=== PATIENT | male | born 1965 | race African-American/Black ===

== ENCOUNTER 2019-11-08 09:30 | Inpatient (IN) | payer MEDICAID ==
[~2019-11-08] VITALS: Ht 167.6 cm; Wt 80.7 kg
[2019-11-08] MEDS ORDERED: BUSP10TA23 PO (12:03)
[2019-11-08] MEDS ORDERED: FLUO-191 PO (12:03)
[2019-11-08] MEDS ORDERED: BUPR75 PO (12:03)
[2019-11-08] MEDS ORDERED: LURA40 PO (12:03)
[2019-11-08] MEDS ORDERED: TRAZ150 PO (12:03)
[2019-11-08] MEDS ORDERED: METF-960 PO (12:07)
[2019-11-08] MEDS ORDERED: AMLO2.5T4 PO (12:07)
[2019-11-08] MEDS ORDERED: ATOR10TA84 PO (12:07)
[2019-11-08] MEDS ORDERED: LISI-662 PO (12:18)
[2019-11-08] MEDS ORDERED: BUPR100 PO (12:20)
[2019-11-08] MEDS ORDERED: HALOPERIDOL 5 MG TABLET PO PRN (13:00)
[2019-11-08] MEDS ORDERED: ZOLPIDEM TARTRATE 10 MG TABLET PO PRN (13:00)
[2019-11-08 13:21] VITALS: BP 155/88
[2019-11-08 14:11] LABS: GLUCOMETER DEV NAME(LOC) BV2S.; GLUCOSE,POINT OF CARE 140 MG/DL (70-110)
[2019-11-08] MEDS: BuPROPion HCL 100 MG TABLET PO SCH (17:54)
[2019-11-08] MEDS: BusPIRone HCL 10 MG TABLET PO SCH (17:54)
[2019-11-08] MEDS: MetFORMIN HCL 500 MG TABLET PO SCH (17:54)
[2019-11-08 18:10] VITALS: BP 133/80
[2019-11-08] MEDS ORDERED: TraZODone HCL 150 MG TABLET PO SCH (21:00)
[2019-11-09 03:53] VITALS: BP 139/80
[2019-11-09 06:37] LABS: BASOPHILS % (AUTO) 1.4 % (0.0-2.0); HEMATOCRIT 38.6 % (41-53); HEMOGLOBIN 12.8 g/dL (13.5-17.5); LYMPHOCYTES # (AUTO) 1.8 K/uL (1.0-4.8); LYMPHOCYTES % (AUTO) 37.4 % (22.0-44.0); MEAN CORPUSCULAR HEMOGLOBIN 29.5 pg (26.0-34.0); MEAN CORPUSCULAR HGB CONC 33.3 G/dL (31.0-37.0); MEAN CORPUSCULAR VOLUME 89 fL (80-100); MONOCYTES # (AUTO) 0.4 K/uL (0.1-1.0); MONOCYTES % (AUTO) 9.3 % (2.0-9.0); NEUTROPHILS # (AUTO) 2.4 K/uL (1.8-7.7); NEUTROPHILS % (AUTO) 49.9 % (40.0-70.0); PLATELET COUNT (AUTO) 321 K/uL (150-450); RED BLOOD CELL COUNT(AUTO) 4.36 MIL/uL (4.50-5.90); RED CELL DISTRIBUTION WIDTH 13.9 % (11.5-14.5)
[2019-11-09 07:07] LABS: ALANINE AMINOTRANSFERASE 22 U/L (12-78); ALBUMIN 3.1 g/dL (3.4-5.0); ALKALINE PHOSPHATASE 61 U/L (46-116); ANION GAP 5 mmol/L (8-16); ASPARTATE AMINOTRANSFERASE 8 U/L (15-37); BILIRUBIN,TOTAL 0.2 mg/dL (0.1-1.0); CALCIUM, TOTAL 9.1 mg/dL (8.8-10.5); CARBON DIOXIDE 32 mmol/L (22-29); CHLORIDE 106 mmol/L (98-107); CHOL/HDL RATIO 2.3 (4.2-7.3); CHOLESTEROL 135 mg/dL (131-200); CREATININE 1.06 mg/dL (0.60-1.30); FREE T4 (FREE THYROXINE) 0.97 ng/dL (0.76-1.46); GLOMERULAR FILTR. RATE CALC > 60 mL/min (>60); GLUCOSE,RANDOM 103 mg/dL (70-110); HDL CHOLESTEROL 58 mg/dL (40-60); LDL CHOL (CALC.) 62 mg/dL (0-130); POTASSIUM 4.3 mmol/L (3.5-5.1); SODIUM SERUM 143 mmol/L (136-145); THYROID STIMULATING HORMONE 0.51 uIU/mL (0.36-3.74); TRIGLYCERIDES 76 mg/dL (15-150); UREA NITROGEN, BLOOD 10 mg/dL (7-18)
[2019-11-09] MEDS: MetFORMIN HCL 500 MG TABLET PO SCH ×2 (07:12→17:00)
[2019-11-09] MEDS: ATORVASTATIN CALCIUM 10 MG TABLET PO SCH (08:24)
[2019-11-09] MEDS: BuPROPion HCL 100 MG TABLET PO SCH ×2 (08:24→17:00)
[2019-11-09] MEDS: LISINOPRIL 20 MG TABLET PO SCH (08:24)
[2019-11-09] MEDS: FLUoxetine HCL 20 MG CAPSULE PO SCH (08:24)
[2019-11-09] MEDS: BusPIRone HCL 10 MG TABLET PO SCH ×3 (08:24→17:00)
[2019-11-09] MEDS: AmLODIPine BESYLATE 2.5 MG TABLET PO SCH (08:24)
[2019-11-09 08:47] VITALS: BP 118/70
[2019-11-09 16:07] VITALS: BP 120/75
[2019-11-09] MEDS: TraZODone HCL 100 MG TABLET PO SCH (20:08)
[2019-11-10 06:21] VITALS: BP 109/72
[2019-11-10] MEDS: MetFORMIN HCL 500 MG TABLET PO SCH ×2 (06:50→17:55)
[2019-11-10 08:46] VITALS: BP 120/77
[2019-11-10] MEDS: LISINOPRIL 20 MG TABLET PO SCH (08:50)
[2019-11-10] MEDS: FLUoxetine HCL 20 MG CAPSULE PO SCH (08:50)
[2019-11-10] MEDS: AmLODIPine BESYLATE 2.5 MG TABLET PO SCH (08:51)
[2019-11-10] MEDS: ATORVASTATIN CALCIUM 10 MG TABLET PO SCH (08:51)
[2019-11-10] MEDS: BusPIRone HCL 10 MG TABLET PO SCH ×3 (08:52→17:55)
[2019-11-10] MEDS: BuPROPion HCL 100 MG TABLET PO SCH (08:57)
[2019-11-10] MEDS: LORazepam 2 MG TABLET PO PRN (10:19)
[2019-11-10 16:51] VITALS: BP 130/76
[2019-11-10] MEDS: TraZODone HCL 100 MG TABLET PO SCH (21:51)
[2019-11-11 06:05] VITALS: BP 128/80
[2019-11-11] MEDS: MetFORMIN HCL 500 MG TABLET PO SCH ×2 (06:43→17:00)
[2019-11-11 08:11] VITALS: BP 141/84
[2019-11-11] MEDS: LISINOPRIL 20 MG TABLET PO SCH (08:46)
[2019-11-11] MEDS: ATORVASTATIN CALCIUM 10 MG TABLET PO SCH (08:46)
[2019-11-11] MEDS: BuPROPion HCL XL 150 MG ER TABLET PO SCH (08:47)
[2019-11-11] MEDS: BusPIRone HCL 10 MG TABLET PO SCH ×3 (08:47→17:00)
[2019-11-11] MEDS: FLUoxetine HCL 20 MG CAPSULE PO SCH (08:47)
[2019-11-11] MEDS: AmLODIPine BESYLATE 2.5 MG TABLET PO SCH (08:47)
[2019-11-11 16:09] VITALS: BP 132/76
[2019-11-11] MEDS: LORazepam 2 MG TABLET PO PRN (19:28)
[2019-11-11] MEDS: TraZODone HCL 100 MG TABLET PO SCH (20:41)
[2019-11-12 00:55] VITALS: BP 118/87
[2019-11-12] MEDS: MetFORMIN HCL 500 MG TABLET PO SCH ×2 (06:31→17:09)
[2019-11-12] MEDS: LISINOPRIL 20 MG TABLET PO SCH (08:14)
[2019-11-12] MEDS: FLUoxetine HCL 20 MG CAPSULE PO SCH (08:14)
[2019-11-12] MEDS: BusPIRone HCL 10 MG TABLET PO SCH ×3 (08:14→17:09)
[2019-11-12] MEDS: AmLODIPine BESYLATE 2.5 MG TABLET PO SCH (08:14)
[2019-11-12] MEDS: BuPROPion HCL XL 150 MG ER TABLET PO SCH (08:14)
[2019-11-12] MEDS: ATORVASTATIN CALCIUM 10 MG TABLET PO SCH (08:15)
[2019-11-12 08:39] VITALS: BP 144/86
[2019-11-12] MEDS ORDERED: ACETAMINOPHEN 325 MG TABLET PO PRN (09:45)
[2019-11-12] MEDS ORDERED: ONDANSETRON HCL 4 MG TABLET PO PRN (09:45)
[2019-11-12] MEDS ORDERED: DOCUSATE SODIUM 100 MG CAPSULE PO PRN (09:45)
[2019-11-12] MEDS ORDERED: MAGNESIUM HYDROXIDE SUSPENSION 30 ML UDCUP PO PRN (09:45)
[2019-11-12] MEDS ORDERED: CloNIDine HCL 0.1 MG TABLET PO PRN (09:45)
[2019-11-12] MEDS ORDERED: GuaiFENesin/D-METHORPHAN [SUGAR-FREE] 200-20MG/10 ML SYRUP UDCUP PO PRN (09:45)
[2019-11-12] MEDS ORDERED: NICOTINE 14 MG/24 HOUR PATCH TD PRN (09:45)
[2019-11-12] MEDS ORDERED: MAG HYDROX/AL HYDROX/SIMETH ES 30 ML SUSPENSION UDCUP PO PRN (09:45)
[2019-11-12] MEDS ORDERED: IBUPROFEN 400 MG TABLET PO PRN (09:45)
[2019-11-12] MEDS ORDERED: LOPERAMIDE HCL 2 MG CAPSULE PO PRN (09:45)
[2019-11-12] MEDS ORDERED: ALBUTEROL SULFATE HFA 90 MCG/PUFF 8 GM INHALER IH PRN (09:45)
[2019-11-12] MEDS ORDERED: PETROLATUM,WHITE 28 GM JELLY TP PRN (09:45)
[2019-11-12 16:00] VITALS: BP 139/72
[2019-11-12] MEDS: TraZODone HCL 100 MG TABLET PO SCH (20:08)
[2019-11-13 00:48] VITALS: BP 117/64
[2019-11-13] MEDS: MetFORMIN HCL 500 MG TABLET PO SCH ×2 (06:32→17:04)
[2019-11-13] MEDS: AmLODIPine BESYLATE 2.5 MG TABLET PO SCH (08:30)
[2019-11-13] MEDS: LISINOPRIL 20 MG TABLET PO SCH (08:30)
[2019-11-13] MEDS: BuPROPion HCL XL 150 MG ER TABLET PO SCH (08:30)
[2019-11-13] MEDS: ATORVASTATIN CALCIUM 10 MG TABLET PO SCH (08:31)
[2019-11-13] MEDS: FLUoxetine HCL 20 MG CAPSULE PO SCH (08:31)
[2019-11-13] MEDS: BusPIRone HCL 10 MG TABLET PO SCH ×3 (08:31→17:04)
[2019-11-13 08:44] VITALS: BP 103/77
[2019-11-13 18:08] VITALS: BP 130/81
[2019-11-13] MEDS: TraZODone HCL 100 MG TABLET PO SCH (20:54)
[2019-11-14 05:56] VITALS: BP 127/82
[2019-11-14] MEDS: MetFORMIN HCL 500 MG TABLET PO SCH ×2 (06:43→17:14)
[2019-11-14 08:27] VITALS: BP 112/63
[2019-11-14] MEDS: AmLODIPine BESYLATE 2.5 MG TABLET PO SCH (08:42)
[2019-11-14] MEDS: BusPIRone HCL 10 MG TABLET PO SCH ×3 (08:42→17:14)
[2019-11-14] MEDS: LISINOPRIL 20 MG TABLET PO SCH (08:42)
[2019-11-14] MEDS: FLUoxetine HCL 20 MG CAPSULE PO SCH (08:42)
[2019-11-14] MEDS: BuPROPion HCL XL 150 MG ER TABLET PO SCH (08:42)
[2019-11-14] MEDS: ATORVASTATIN CALCIUM 10 MG TABLET PO SCH (08:42)
[2019-11-14 16:17] VITALS: BP 117/74
[2019-11-14] MEDS: TraZODone HCL 100 MG TABLET PO SCH (20:23)
[2019-11-15 06:18] VITALS: BP 123/79
[2019-11-15] MEDS: MetFORMIN HCL 500 MG TABLET PO SCH ×2 (06:26→16:58)
[2019-11-15 06:34] LABS: GLUCOMETER DEV NAME(LOC) BV2S.; GLUCOSE,POINT OF CARE 95 MG/DL (70-110)
[2019-11-15] MEDS: ATORVASTATIN CALCIUM 10 MG TABLET PO SCH (08:28)
[2019-11-15 08:29] VITALS: BP 140/80
[2019-11-15] MEDS: FLUoxetine HCL 20 MG CAPSULE PO SCH (08:29)
[2019-11-15] MEDS: BuPROPion HCL XL 150 MG ER TABLET PO SCH (08:29)
[2019-11-15] MEDS: AmLODIPine BESYLATE 2.5 MG TABLET PO SCH (08:29)
[2019-11-15] MEDS: BusPIRone HCL 10 MG TABLET PO SCH ×3 (08:29→16:58)
[2019-11-15] MEDS: LISINOPRIL 20 MG TABLET PO SCH (08:29)
[2019-11-15 16:29] VITALS: BP 135/74
[2019-11-15] MEDS: TraZODone HCL 100 MG TABLET PO SCH (20:28)
[2019-11-16 05:41] VITALS: BP 126/72
[2019-11-16 06:26] LABS: GLUCOMETER DEV NAME(LOC) BV2S.; GLUCOSE,POINT OF CARE 82 MG/DL (70-110)
[2019-11-16] MEDS: MetFORMIN HCL 500 MG TABLET PO SCH ×2 (07:13→16:59)
[2019-11-16] MEDS: AmLODIPine BESYLATE 2.5 MG TABLET PO SCH (09:09)
[2019-11-16] MEDS: LISINOPRIL 20 MG TABLET PO SCH (09:09)
[2019-11-16] MEDS: ATORVASTATIN CALCIUM 10 MG TABLET PO SCH (09:09)
[2019-11-16] MEDS: BuPROPion HCL XL 150 MG ER TABLET PO SCH (09:09)
[2019-11-16] MEDS: FLUoxetine HCL 20 MG CAPSULE PO SCH (09:09)
[2019-11-16] MEDS: BusPIRone HCL 10 MG TABLET PO SCH ×3 (09:09→16:59)
[2019-11-16 10:32] VITALS: BP 127/68
[2019-11-16 16:09] VITALS: BP 133/81
[2019-11-16 17:03] LABS: GLUCOMETER DEV NAME(LOC) BV2S.; GLUCOSE,POINT OF CARE 139 MG/DL (70-110)
[2019-11-16] MEDS: TraZODone HCL 100 MG TABLET PO SCH (20:28)
[2019-11-17 06:26] LABS: GLUCOMETER DEV NAME(LOC) BV2S.; GLUCOSE,POINT OF CARE 88 MG/DL (70-110)
[2019-11-17] MEDS: MetFORMIN HCL 500 MG TABLET PO SCH (06:28)
[2019-11-17 08:00] VITALS: BP 135/81
[2019-11-17] MEDS: AmLODIPine BESYLATE 2.5 MG TABLET PO SCH (08:28)
[2019-11-17] MEDS: ATORVASTATIN CALCIUM 10 MG TABLET PO SCH (08:28)
[2019-11-17] MEDS: FLUoxetine HCL 20 MG CAPSULE PO SCH (08:28)
[2019-11-17] MEDS: BusPIRone HCL 10 MG TABLET PO SCH ×3 (08:28→16:41)
[2019-11-17] MEDS: LISINOPRIL 20 MG TABLET PO SCH (08:28)
[2019-11-17] MEDS ORDERED: BuPROPion HCL XL 150 MG ER TABLET PO SCH (09:00)
[2019-11-17] MEDS ORDERED: BuPROPion HCL XL 150 MG ER TABLET PO ONE (11:00)
[2019-11-17 16:07] VITALS: BP 124/76
[2019-11-17] MEDS: TraZODone HCL 100 MG TABLET PO SCH (20:44)
[2019-11-18 00:43] VITALS: BP 124/70
[2019-11-18 06:22] LABS: GLUCOMETER DEV NAME(LOC) BV2S.; GLUCOSE,POINT OF CARE 96 MG/DL (70-110)
[2019-11-18] MEDS: MetFORMIN HCL 500 MG TABLET PO SCH (06:38)
[2019-11-18] MEDS: BusPIRone HCL 10 MG TABLET PO SCH ×3 (08:18→16:19)
[2019-11-18] MEDS: AmLODIPine BESYLATE 2.5 MG TABLET PO SCH (08:18)
[2019-11-18] MEDS: FLUoxetine HCL 20 MG CAPSULE PO SCH (08:18)
[2019-11-18] MEDS: BuPROPion HCL XL 150 MG ER TABLET PO SCH (08:19)
[2019-11-18] MEDS: ATORVASTATIN CALCIUM 10 MG TABLET PO SCH (08:19)
[2019-11-18] MEDS: LISINOPRIL 20 MG TABLET PO SCH (08:19)
[2019-11-18 08:22] VITALS: BP 121/80
[2019-11-18 16:43] VITALS: BP 140/91
[2019-11-18 20:28] LABS: GLUCOMETER DEV NAME(LOC) BV2S.; GLUCOSE,POINT OF CARE 150 MG/DL (70-110)
[2019-11-18] MEDS: TraZODone HCL 100 MG TABLET PO SCH (21:00)
[2019-11-19 00:21] VITALS: BP 112/69
[2019-11-19 06:21] LABS: GLUCOMETER DEV NAME(LOC) BV2S.; GLUCOSE,POINT OF CARE 90 MG/DL (70-110)
[2019-11-19] MEDS: MetFORMIN HCL 500 MG TABLET PO SCH (06:44)
[2019-11-19] MEDS: ATORVASTATIN CALCIUM 10 MG TABLET PO SCH (08:51)
[2019-11-19] MEDS: AmLODIPine BESYLATE 2.5 MG TABLET PO SCH (08:52)
[2019-11-19] MEDS: BuPROPion HCL XL 150 MG ER TABLET PO SCH (08:52)
[2019-11-19] MEDS: BusPIRone HCL 10 MG TABLET PO SCH ×3 (08:52→16:19)
[2019-11-19] MEDS: FLUoxetine HCL 20 MG CAPSULE PO SCH (08:52)
[2019-11-19] MEDS: LISINOPRIL 20 MG TABLET PO SCH (08:52)
[2019-11-19 09:24] VITALS: BP 127/83
[2019-11-19 16:18] VITALS: BP 138/90
[2019-11-19] MEDS: TraZODone HCL 100 MG TABLET PO SCH (20:13)
[2019-11-19 20:30] LABS: GLUCOMETER DEV NAME(LOC) BV2S.; GLUCOSE,POINT OF CARE 108 MG/DL (70-110)
[2019-11-20 00:20] VITALS: BP 70/78
[2019-11-20 06:30] LABS: GLUCOMETER DEV NAME(LOC) BV2S.; GLUCOSE,POINT OF CARE 99 MG/DL (70-110)
[2019-11-20] MEDS: MetFORMIN HCL 500 MG TABLET PO SCH (06:46)
[2019-11-20 08:30] VITALS: BP 130/74
[2019-11-20] MEDS: AmLODIPine BESYLATE 2.5 MG TABLET PO SCH (08:39)
[2019-11-20] MEDS: LISINOPRIL 20 MG TABLET PO SCH (08:40)
[2019-11-20] MEDS: BuPROPion HCL XL 150 MG ER TABLET PO SCH (08:40)
[2019-11-20] MEDS: BusPIRone HCL 10 MG TABLET PO SCH ×3 (08:40→16:26)
[2019-11-20] MEDS: ATORVASTATIN CALCIUM 10 MG TABLET PO SCH (08:40)
[2019-11-20] MEDS: FLUoxetine HCL 20 MG CAPSULE PO SCH (08:40)
[2019-11-20] MEDS: LORazepam 2 MG TABLET PO PRN (13:40)
[2019-11-20 16:15] VITALS: BP 136/84
[2019-11-20 17:11] LABS: GLUCOMETER DEV NAME(LOC) BV2S.; GLUCOSE,POINT OF CARE 160 MG/DL (70-110)
[2019-11-20] MEDS: TraZODone HCL 100 MG TABLET PO SCH (20:36)
[2019-11-21 05:21] VITALS: BP 116/71
[2019-11-21] MEDS: MetFORMIN HCL 500 MG TABLET PO SCH (07:16)
[2019-11-21 08:36] VITALS: BP 132/73
[2019-11-21] MEDS: LISINOPRIL 20 MG TABLET PO SCH (08:47)
[2019-11-21] MEDS: BusPIRone HCL 10 MG TABLET PO SCH ×3 (08:47→16:55)
[2019-11-21] MEDS: BuPROPion HCL XL 150 MG ER TABLET PO SCH (08:47)
[2019-11-21] MEDS: AmLODIPine BESYLATE 2.5 MG TABLET PO SCH (08:47)
[2019-11-21] MEDS: ATORVASTATIN CALCIUM 10 MG TABLET PO SCH (08:48)
[2019-11-21] MEDS: FLUoxetine HCL 20 MG CAPSULE PO SCH (08:48)
[2019-11-21 16:26] VITALS: BP 141/82
[2019-11-21 16:32] LABS: GLUCOMETER DEV NAME(LOC) BV2S.; GLUCOSE,POINT OF CARE 106 MG/DL (70-110)
[2019-11-21] MEDS: TraZODone HCL 100 MG TABLET PO SCH (20:56)
[2019-11-22 00:45] VITALS: BP 122/66
[2019-11-22] MEDS: MetFORMIN HCL 500 MG TABLET PO SCH (07:29)
[2019-11-22 07:42] LABS: GLUCOMETER DEV NAME(LOC) BV2S.; GLUCOSE,POINT OF CARE 125 MG/DL (70-110)
[2019-11-22 08:48] VITALS: BP 130/75
[2019-11-22] MEDS: ATORVASTATIN CALCIUM 10 MG TABLET PO SCH (09:39)
[2019-11-22] MEDS: BuPROPion HCL XL 150 MG ER TABLET PO SCH (09:39)
[2019-11-22] MEDS: LISINOPRIL 20 MG TABLET PO SCH (09:39)
[2019-11-22] MEDS: AmLODIPine BESYLATE 2.5 MG TABLET PO SCH (09:39)
[2019-11-22] MEDS: BusPIRone HCL 10 MG TABLET PO SCH ×3 (09:39→16:32)
[2019-11-22] MEDS: FLUoxetine HCL 20 MG CAPSULE PO SCH (09:39)
[2019-11-22 16:47] VITALS: BP 132/85
[2019-11-22 17:03] LABS: GLUCOMETER DEV NAME(LOC) BV2S.; GLUCOSE,POINT OF CARE 104 MG/DL (70-110)
[2019-11-22] MEDS: TraZODone HCL 100 MG TABLET PO SCH (20:13)
[2019-11-23 06:31] VITALS: BP 122/89
[2019-11-23 06:50] LABS: GLUCOMETER DEV NAME(LOC) BV2S.; GLUCOSE,POINT OF CARE 92 MG/DL (70-110)
[2019-11-23] MEDS: MetFORMIN HCL 500 MG TABLET PO SCH (07:04)
[2019-11-23] MEDS: AmLODIPine BESYLATE 2.5 MG TABLET PO SCH (08:41)
[2019-11-23] MEDS: LISINOPRIL 20 MG TABLET PO SCH (08:41)
[2019-11-23] MEDS: ATORVASTATIN CALCIUM 10 MG TABLET PO SCH (08:41)
[2019-11-23] MEDS: BusPIRone HCL 10 MG TABLET PO SCH ×3 (08:41→16:39)
[2019-11-23] MEDS: BuPROPion HCL XL 150 MG ER TABLET PO SCH (08:41)
[2019-11-23] MEDS: FLUoxetine HCL 20 MG CAPSULE PO SCH (08:42)
[2019-11-23 10:12] VITALS: BP 136/87
[2019-11-23 15:30] VITALS: BP 136/88
[2019-11-23 16:18] VITALS: BP 136/88
[2019-11-23 16:50] LABS: GLUCOMETER DEV NAME(LOC) BV2S.; GLUCOSE,POINT OF CARE 81 MG/DL (70-110)
[2019-11-23] MEDS: LORazepam 2 MG TABLET PO PRN (18:02)
[2019-11-23] MEDS: TraZODone HCL 100 MG TABLET PO SCH (20:26)
[2019-11-24 06:10] VITALS: BP 137/86
[2019-11-24 06:40] LABS: GLUCOMETER DEV NAME(LOC) BV2S.; GLUCOSE,POINT OF CARE 84 MG/DL (70-110)
[2019-11-24] MEDS: MetFORMIN HCL 500 MG TABLET PO SCH (07:00)
[2019-11-24 08:35] VITALS: BP 168/87
[2019-11-24] MEDS: AmLODIPine BESYLATE 2.5 MG TABLET PO SCH (08:52)
[2019-11-24] MEDS: LISINOPRIL 20 MG TABLET PO SCH (08:53)
[2019-11-24] MEDS: BuPROPion HCL XL 150 MG ER TABLET PO SCH (08:53)
[2019-11-24] MEDS: FLUoxetine HCL 20 MG CAPSULE PO SCH (08:53)
[2019-11-24] MEDS: BusPIRone HCL 10 MG TABLET PO SCH ×3 (08:54→18:04)
[2019-11-24] MEDS: ATORVASTATIN CALCIUM 10 MG TABLET PO SCH (08:54)
[2019-11-24 16:20] VITALS: BP 137/83
[2019-11-24 16:45] LABS: GLUCOMETER DEV NAME(LOC) BV2S.; GLUCOSE,POINT OF CARE 109 MG/DL (70-110)
[2019-11-24] MEDS: TraZODone HCL 100 MG TABLET PO SCH (20:40)
[2019-11-25 02:08] VITALS: BP 137/80
[2019-11-25 06:21] LABS: GLUCOMETER DEV NAME(LOC) BV2S.; GLUCOSE,POINT OF CARE 81 MG/DL (70-110)
[2019-11-25] MEDS: MetFORMIN HCL 500 MG TABLET PO SCH (06:56)
[2019-11-25 08:06] VITALS: BP 133/84
[2019-11-25] MEDS: AmLODIPine BESYLATE 2.5 MG TABLET PO SCH (08:50)
[2019-11-25] MEDS: BusPIRone HCL 10 MG TABLET PO SCH ×3 (08:50→16:42)
[2019-11-25] MEDS: ATORVASTATIN CALCIUM 10 MG TABLET PO SCH (08:51)
[2019-11-25] MEDS: BuPROPion HCL XL 150 MG ER TABLET PO SCH (08:51)
[2019-11-25] MEDS: LISINOPRIL 20 MG TABLET PO SCH (08:51)
[2019-11-25] MEDS: FLUoxetine HCL 20 MG CAPSULE PO SCH (08:51)
[2019-11-25 16:18] VITALS: BP 136/93
[2019-11-25 17:12] LABS: GLUCOMETER DEV NAME(LOC) BV2S.; GLUCOSE,POINT OF CARE 93 MG/DL (70-110)
[2019-11-25] MEDS: TraZODone HCL 100 MG TABLET PO SCH (20:10)
[2019-11-25] MEDS ORDERED: ZOLPIDEM TARTRATE 10 MG TABLET PO PRN (22:00)
[2019-11-25] MEDS ORDERED: LORazepam 2 MG TABLET PO PRN (22:00)
[2019-11-26 05:40] VITALS: BP 120/82
[2019-11-26] MEDS: MetFORMIN HCL 500 MG TABLET PO SCH (06:33)
[2019-11-26 06:38] LABS: GLUCOMETER DEV NAME(LOC) BV2S.; GLUCOSE,POINT OF CARE 105 MG/DL (70-110)
[2019-11-26 08:22] VITALS: BP 125/69
[2019-11-26] MEDS: ATORVASTATIN CALCIUM 10 MG TABLET PO SCH (08:40)
[2019-11-26] MEDS: FLUoxetine HCL 20 MG CAPSULE PO SCH (08:40)
[2019-11-26] MEDS: LISINOPRIL 20 MG TABLET PO SCH (08:40)
[2019-11-26] MEDS: BuPROPion HCL XL 150 MG ER TABLET PO SCH (08:41)
[2019-11-26] MEDS: BusPIRone HCL 10 MG TABLET PO SCH ×3 (08:41→16:39)
[2019-11-26] MEDS: AmLODIPine BESYLATE 2.5 MG TABLET PO SCH (08:41)
[2019-11-26 16:30] VITALS: BP 133/89
[2019-11-26 17:55] LABS: GLUCOMETER DEV NAME(LOC) BV2S.; GLUCOSE,POINT OF CARE 193 MG/DL (70-110)
[2019-11-26] MEDS: TraZODone HCL 100 MG TABLET PO SCH (20:15)
[2019-11-27 05:58] VITALS: BP 132/63
[2019-11-27 06:33] LABS: GLUCOMETER DEV NAME(LOC) BV2S.; GLUCOSE,POINT OF CARE 108 MG/DL (70-110)
[2019-11-27] MEDS: MetFORMIN HCL 500 MG TABLET PO SCH (06:35)
[2019-11-27 08:18] VITALS: BP 139/90
[2019-11-27] MEDS: ATORVASTATIN CALCIUM 10 MG TABLET PO SCH (08:23)
[2019-11-27] MEDS: LISINOPRIL 20 MG TABLET PO SCH (08:23)
[2019-11-27] MEDS: BuPROPion HCL XL 150 MG ER TABLET PO SCH (08:23)
[2019-11-27] MEDS: BusPIRone HCL 10 MG TABLET PO SCH ×3 (08:23→16:17)
[2019-11-27] MEDS: FLUoxetine HCL 20 MG CAPSULE PO SCH (08:23)
[2019-11-27] MEDS: AmLODIPine BESYLATE 2.5 MG TABLET PO SCH (08:23)
[2019-11-27] MEDS ORDERED: FLUO-191 PO (10:43)
[2019-11-27] MEDS ORDERED: TRAZ-257 PO (10:43)
[2019-11-27] MEDS ORDERED: BUPR-47 PO (10:43)
[2019-11-27] MEDS ORDERED: BUSP10TA23 PO (10:43)
[2019-11-27] MEDS ORDERED: METF-960 PO (11:44)
== END 2019-11-27 16:18 | disposition home or self-care (01) | DRG 751 ==
LOC: B2S 12:54
PROVIDERS: ADMIT Psychiatry & Neurology Psychiatry; ATTEND Psychiatry & Neurology Child & Adolescent Psychiatry
DX: F33.2 Major depressive disorder, recurrent severe without psychotic features (principal); R45.851 Suicidal ideations; F22 Delusional disorders; E11.9 Type 2 diabetes mellitus without complications; D64.9 Anemia, unspecified; E78.5 Hyperlipidemia, unspecified; I10 Essential (primary) hypertension; Z79.899 Other long term (current) drug therapy; Z81.8 Family history of other mental and behavioral disorders; Z85.46 Personal history of malignant neoplasm of prostate; Z79.84 Long term (current) use of oral hypoglycemic drugs
CPT/HCPCS: 84439; 84443; 87081